=== PATIENT | male | born 1995 | race Caucasian/White ===

== ENCOUNTER 2020-05-05 10:09 | Emergency (ER) | payer MEDICAID, SELFPAY ==
[2020-05-05] MEDS ORDERED: Ibuprofen 200 MG TAB ONE (10:35)
== END 2020-05-05 10:45 | disposition home or self-care (01) ==
LOC: BURERS 10:09
DX: S43.422A Sprain of left rotator cuff capsule, initial encounter (principal); X50.9XXA Other and unspecified overexertion or strenuous movements or postures, initial encounter
CPT/HCPCS: 99283

== ENCOUNTER 2020-07-11 16:17 | Emergency (ER) | payer SELFPAY ==
[2020-07-11] MEDS ORDERED: Cephalexin 250 MG CAP ONE (17:12)
[2020-07-11] MEDS ORDERED: Ibuprofen 800 MG TAB ONE (17:12)
--- NOTE | 2020-07-11 19:57 | RAD ---
RIGHT INDEX FINGER THREE VIEWS: 07/11/20 A small nondisplaced fracture of the terminal tuft of the distal phalanx is present. The joints appea r intact. IMPRESSION: Tuft fracture. POS: HOME
== END 2020-07-11 17:15 | disposition home or self-care (01) ==
LOC: BURERS 16:17
DX: S62.660A Nondisplaced fracture of distal phalanx of right index finger, initial encounter for closed fracture (principal); F90.9 Attention-deficit hyperactivity disorder, unspecified type; W20.8XXA Other cause of strike by thrown, projected or falling object, initial encounter